=== PATIENT | male | born 1995 | race Two or more races ===

== ENCOUNTER 2021-07-28 23:07 | Emergency (ER) | payer SELFPAY ==
[~2021-07-28] VITALS: Ht 175.3 cm; Wt 85.7 kg
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
[2021-07-28] MEDS ORDERED: IBUPROFEN 400 MG TABLET ONE (23:27)
[2021-07-28] MEDS ORDERED: IBUPROFEN 400 MG TABLET PO ONE (23:30)
--- NOTE | 2021-07-28 23:30 | NUR ---
HARD CERVICAL IMMOBILIZER APPLIED; PT TOLERATING WELL
--- NOTE | 2021-07-28 23:35 | NUR ---
PT TAKEN TO CT VIA RAKESH
--- NOTE | 2021-07-28 23:54 | NUR ---
RETURNED FROM CT
--- NOTE | 2021-07-29 00:25 | NUR ---
Patient discharged to home in stable condition. Written and verbal after care instructions given. Patient verbalizes understanding of instruction. pT ambulatory with a steady gait
[2021-07-29 00:35] VITALS: BP 141/70
== END 2021-07-29 00:36 | disposition home or self-care (01) ==
LOC: ER 23:09
DX: S16.1XXA Strain of muscle, fascia and tendon at neck level, initial encounter (principal); S80.02XA Contusion of left knee, initial encounter; S80.01XA Contusion of right knee, initial encounter; V49.59XA Passenger injured in collision with other motor vehicles in traffic accident, initial encounter; Y93.89 Activity, other specified; Y92.413 State road as the place of occurrence of the external cause; Y99.8 Other external cause status
CPT/HCPCS: 70450-TC; 72125-TC; 73564-TC